=== PATIENT | female | born 1975 | race Caucasian/White ===

== ENCOUNTER 2017-04-14 08:53 | Day surgery (SDC) | payer BC ==
[2017-04-14] MEDS ORDERED: D5 LR 1000 ML 1,000 ML IV ONE (09:00)
[2017-04-14] MEDS ORDERED: VERSED ONE (10:40)
[2017-04-14] MEDS ORDERED: DIPRIVAN VIAL 20 ML ONE (10:40)
[2017-04-14] MEDS ORDERED: ZOFRAN INJ 4 MG VIAL ONE (10:40)
[2017-04-14] MEDS ORDERED: FENTANYL INJ 100 mcg ONE (10:41)
[2017-04-14] MEDS ORDERED: DIPRIVAN VIAL 10 ML ONE (10:50)
[2017-04-14 11:27] VITALS: BP 118/60
== END 2017-04-14 11:32 | disposition home or self-care (01) ==
LOC: SURG1 08:53
PROVIDERS: ATTEND Internal Medicine Gastroenterology
PROC: 0DJD8ZZ Inspection of Lower Intestinal Tract, Via Natural or Artificial Opening Endoscopic (ICD-10-PCS; principal; 2017-04-14 17:15)
DX: Z12.11 Encounter for screening for malignant neoplasm of colon (principal); K64.0 First degree hemorrhoids; Z80.0 Family history of malignant neoplasm of digestive organs
CPT/HCPCS: A4217; J2250; J2405; J3010; J3490; J7120